=== PATIENT | male | born 1995 | race Caucasian/White ===

== ENCOUNTER 2022-08-14 07:57 | Outpatient (REF) | payer SELFPAY ==
[2022-08-22 12:49] LABS: Perfluorobutanesulfonic Acid None Detected; Perfluoroheptanoic Acid None Detected; Perfluorohexanesulfonic Acid 1.6 ng/mL; Perfluorononanoic Acid 0.44 ng/mL; Perfluorooctanesulfonic Acid 2.4 ng/mL; Perfluorooctanoic Acid 1.2 ng/mL
== END 2022-08-14 07:58 | disposition home or self-care (01) ==
LOC: HO.LAB 07:57
PROVIDERS: Visit Provider Physician Assistant Medical
DX: Z57.9 Occupational exposure to unspecified risk factor (principal)
CPT/HCPCS: 36415; 82542

== ENCOUNTER 2023-06-07 08:19 | Emergency (ER) | payer OTHER, SELFPAY ==
--- NOTE | ~2023-06-07 | XR_ITS ---
EXAMINATION: XR FINGER, RIGHT CLINICAL INFORMATION: Slammed finger in truck door COMPARISON: None available. TECHNIQUE: 3 views of the right third finger. FINDINGS: The bones and soft tissues are normal. No fracture. Alignment is anatomic. Joint spaces are maintained. XR/XR finger RT min 2V IMPRESSION: Normal finger radiographs.
[2023-06-07 08:22] VITALS: BP 145/91; PULSE 83; RESP 16; TEMP 36.6; O2SAT 96; BMI 34.7
--- NOTE | 2023-06-07 08:39 | ED.EXTPRO ---
HPI - Extremity Problem General Chief complaint: Extremity Problem Stated complaint: r hand inj at work Time Seen by Provider: 06/07/23 08:29 Source: patient Mode of arrival: ambulatory Limitations: no limitations History of Present Illness HPI Narrative: 28 yo male no PMH here with c/o R hand middle finger caught in truck door at work no other injuries reported. L hand dominant. MD Complaint: extremity pain and extremity swelling Onset (ago): minute(s) (prior to arrival ) Pain Consistency: constant Location: right and other (middle finger) Quality: aching, crushing and constant Radiation: none Relieving factors: rest Exacerbating factors: palpation Associated symptoms: denies other symptoms Context: other (crush injury) Related Data Allergies Allergy/AdvReac Type Severity Reaction Status Date / Time No Known Allergies Allergy Verified 06/07/23 08:21 Review of Systems Review of Systems: Constitutional : No Fever, No Chills Cardiovascular : No Chest Pain, No SOB Respiratory : No Cough, No Dyspnea Gastrointestinal : No Nausea, No Vomiting, No Diarrhea, No abdominal Pain Genitourinary : No Dysuria, No Hematuria Musculoskeletal : positive joint pain, No Myalgias, No Joint Swelling Skin : No Skin lacerations, No rash Neuro : No Weakness, No Numbness, No Loss of Consciousness, No Dizziness, No Headache All other systems reviewed and are negative [facility] Past Medical History Attestation statement: The following information was validated with the patient. Source: old records reviewed Medical History No pertinent past medical history Social History Social History (Updated 06/07/23 @ 09:02 by Luann Anna DO) Patient Tobacco Use Status: Never used Tobacco Physical Exam Vital Signs: Vital Signs: Last Vital Signs Temp 97.9 F 06/07/23 08:22 Pulse 83 06/07/23 08:22 Resp 16 06/07/23 08:22 BP 145/91 H 06/07/23 08:22 Pulse Ox 96 06/07/23 08:22 O2 Del Method Room Air 06/07/23 08:22 BMI result Body Mass Index 34.7 Appearance: Alert. Oriented X3. No acute distress. Eyes: Pupils equal, round and reactive to light. ENT: Pharynx normal. Neck: Normal inspection. Neck supple. CVS: Pulses normal. Respiratory: No respiratory distress Abdomen: atraumatic Skin: Skin warm and dry. Normal skin color. Extremities: R middle finger large subungual hematoma nail intact no break, tip of finger NV intact mild erythema and swelling to distal phalanx Neuro: Oriented X 3. No motor deficit. No sensory deficit. Medical Decision Making Medical Decision Making [facility] Narrative: 28 yo male with no sig PMH here with c/o R middle finger crush injury - xrays ordered to rule out tuft fracture and will need nail trephination to release subungual to prevent nail loss. He is not toxic at this time no other injuries noted, NV intact. Differential Diagnosis Differential Diagnoses: The differential diagnosis associated with the presentation includes fracture, subungual hematoma. Independent Interpretation I performed an independent interpretation of an: Plain X-Ray (no fracture) Radiology Impression Discussion of test interpretation with radiology: I have reviewed the radiologist's reading. Procedures Nail Trephination Time out: Yes Location (finger): right and middle Sterile prep: betadine Method of drainage: nail cautery Procedure successful: Yes Patient tolerated procedure: No Complications Discharge Plan Discharge Clinical Impression: Hematoma, subungual, finger, right Qualifiers: Encounter type: initial encounter Qualified Code(s): S60.10XA - Contusion of unspecified finger with damage to nail, initial encounter Patient Disposition: Home, Self-Care Instructions: Subungual Hematoma (ED) Additional Instructions: monitor for increased redness, swelling, yellow drainage and fevers. keep clean and dry - showers are okay but that is the only water exposure you should be getting. limit activity until Sunday Stand Alone Forms: Work/School Release
--- NOTE | 2023-06-07 09:08 | PC.NURSE ---
PT WAS ASSESSED AND TREATED BY MD, PT VERBALIZES CARE PLAN AND FOLLOW UP RECOMMENDATIONS DSD IN PLACE.
== END 2023-06-07 09:10 | disposition home or self-care (01) ==
PROVIDERS: Emergency Provider Emergency Medicine
DX: S60.031A Contusion of right middle finger without damage to nail, initial encounter (principal); M79.644 Pain in right finger(s); Y29.XXXA Contact with blunt object, undetermined intent, initial encounter; Y93.9 Activity, unspecified; Y92.9 Unspecified place or not applicable; Y99.0 Civilian activity done for income or pay
CPT/HCPCS: 11740; 73140; 99282; 99283; 99284